=== PATIENT | female | born 1980 | race Caucasian/White ===

== ENCOUNTER 2017-10-03 20:02 | Inpatient (IN) | payer OTHER ==
[~2017-10-03] VITALS: Ht 149.9 cm; Wt 49.5 kg
[2017-10-03 20:03] VITALS: O2SAT 97
[2017-10-03] MEDS ORDERED: DIPHTH/TETANUS/ACEL PERTUSSIS (BOOSTER) 0.5 ML VIAL/PFS IM ONE (20:05)
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
[2017-10-03] MEDS ORDERED: IOHEXOL 350 MG/ML 100 ML BTL (for RAD DIAG) IVCONTRAST ONE (20:34)
[2017-10-03 20:41] LABS: AUTOMATED NEUTROPHIL # 7.1 TH/MM3 (1.8-7.7); BASOPHIL % 0.3 % (0.0-2.0); EOSINOPHIL % 0.4 % (0.0-4.0); HEMATOCRIT 36.3 % (35.0-46.0); HEMOGLOBIN 12.1 GM/DL (11.6-15.3); LYMPH % 30.6 % (9.0-44.0); LYMPHOCYTE # 3.3 TH/MM3 (1.0-4.8); MEAN CELL VOLUME 92.5 FL (80.0-100.0); MEAN CORPUSCULAR HEMOGLOBIN 30.8 PG (27.0-34.0); MEAN CORPUSCULAR HGB CONC 33.3 % (32.0-36.0); MEAN PLATELET VOLUME 7.9 FL (7.0-11.0); MONO % 3.9 % (0.0-8.0); MONOCYTE # 0.4 TH/MM3 (0-0.9); NEUT % 64.8 % (16.0-70.0); PLATELET COUNT 226 TH/MM3 (150-450); RED BLOOD COUNT 3.93 MIL/MM3 (4.00-5.30); RED CELL DISTRIBUTION WIDTH 13.7 % (11.6-17.2); WHITE BLOOD COUNT 10.9 TH/MM3 (4.0-11.0)
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
[2017-10-03 20:53] VITALS: O2SAT 98
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
[2017-10-03 20:54] VITALS: BP 120/79; PULSE 87; RESP 18; TEMP 98.7; O2SAT 98
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
[2017-10-03 20:55] LABS: INTERNATIONAL NORMALIZED RATIO 1.1 RATIO; PROTHROMBIN TIME - PATIENT 10.7 SEC (9.8-11.6)
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
[2017-10-03] MEDS ORDERED: SODIUM CHLORIDE 0.9% FLUSH 10 ML FLUSH IV FLUSH PRN (21:15)
[2017-10-03] MEDS ORDERED: ONDANSETRON HCL 4 MG/2 ML VIAL IV PUSH PRN (21:15)
[2017-10-03] MEDS ORDERED: MAGNESIUM HYDROXIDE SUSP 30 ML CUP PO PRN (21:15)
[2017-10-03] MEDS ORDERED: MISCELLANEOUS NURSING INFORMATION XX SCH (21:15)
[2017-10-03] MEDS ORDERED: CHLORHEXIDINE GLUCONATE 2 % 1 PACK (2 CLOTHS) TOP PRN (21:15)
[2017-10-03] MEDS: LACTATED RINGER'S 1000 ML INJ 1,000 ML IV SCH (21:40)
[2017-10-03 22:54] VITALS: BP 104/61; PULSE 77; RESP 18; O2SAT 98
[2017-10-03 23:57] VITALS: BP 117/67; PULSE 79; RESP 18; TEMP 98; O2SAT 98
[2017-10-04] VITALS (14 sets, daily range): BP systolic 106–123; BP diastolic 57–73; PULSE 58–92; RESP 13–29; TEMP 98.3–98.9; O2SAT 94–100
[2017-10-04] MEDS: LACTATED RINGER'S 1000 ML INJ 1,000 ML IV SCH ×3 (00:37→19:52)
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
[2017-10-04 02:25] LABS: HEMOGLOBIN 11.3 GM/DL (11.6-15.3)
[2017-10-04 02:26] LABS: AUTOMATED NEUTROPHIL # 9.6 TH/MM3 (1.8-7.7); BASOPHIL % 0.1 % (0.0-2.0); HEMOGLOBIN 11.3 GM/DL (11.6-15.3); LYMPH % 4.9 % (9.0-44.0); LYMPHOCYTE # 0.5 TH/MM3 (1.0-4.8); MEAN CELL VOLUME 91.7 FL (80.0-100.0); MEAN CORPUSCULAR HEMOGLOBIN 31.4 PG (27.0-34.0); MEAN CORPUSCULAR HGB CONC 34.3 % (32.0-36.0); MEAN PLATELET VOLUME 8.3 FL (7.0-11.0); MONOCYTE # 0.8 TH/MM3 (0-0.9); PLATELET COUNT 177 TH/MM3 (150-450); RED CELL DISTRIBUTION WIDTH 13.5 % (11.6-17.2)
[2017-10-04 02:38] LABS: BICARBONATE 28.6 MEQ/L (21.0-32.0); CALCIUM 8.3 MG/DL (8.5-10.1); CREATININE 0.94 MG/DL (0.50-1.00)
[2017-10-04] MEDS ORDERED: POTASSIUM CHLOR 40 MEQ PREMIX 100 ML IV PRN ×2 (02:45)
[2017-10-04] MEDS ORDERED: POTASSIUM PHOSPHATE MONOBASIC 500 MG TAB PO PRN (02:45)
[2017-10-04] MEDS ORDERED: MAGNESIUM SULFATE INJ 4 GM in SODIUM CHLORIDE 0.9% INJ 92 ML IV PRN (02:45)
[2017-10-04] MEDS ORDERED: POTASSIUM PHOSPHATE MONOBASIC 500 MG TAB PO/TUBE PRN (02:45)
[2017-10-04] MEDS ORDERED: MAGNESIUM OXIDE 400 MG TAB PO PRN (02:45)
[2017-10-04] MEDS ORDERED: POTASSIUM CHLORIDE 25 MEQ EFFERVESCENT TAB PO PRN (02:45)
[2017-10-04] MEDS ORDERED: POTASSIUM CHLOR 20 MEQ PREMIX 100 ML IV PRN ×2 (02:45)
[2017-10-04] MEDS ORDERED: POTASSIUM PHOSPHATE INJ 30 MMOL in SODIUM CHLOR 0.9% 250 ML INJ 250 ML IV PRN (02:45)
[2017-10-04] MEDS ORDERED: MAGNESIUM SULFATE INJ 2 GM in SODIUM CHLORIDE 0.9% INJ 96 ML IV PRN (02:45)
[2017-10-04] MEDS ORDERED: SODIUM PHOSPHATE INJ 30 MMOL in SODIUM CHLOR 0.9% 250 ML INJ 240 ML IV PRN (02:45)
[2017-10-04] MEDS ORDERED: MORPHINE SULFATE 2 MG/ML INJ IV PUSH PRN (03:00)
[2017-10-04] MEDS ORDERED: MORPHINE SULFATE 2 MG/ML INJ IV PRN (03:00)
[2017-10-04] MEDS: RESP: ALBUTEROL 2.5 MG/IPRATROPIUM 0.5 MG NEB (SCH) NEB ×4 (03:27→20:28)
[2017-10-04] MEDS: CHLORHEXIDINE GLUCONATE 2 % 1 PACK (2 CLOTHS) TOP SCH (03:31)
[2017-10-04 03:38] LABS: AMORPHOUS SEDIMENT, URINE RARE; BILIRUBIN, URINE NEG (NEG); BLOOD, URINE LARGE (NEG); GLUCOSE,URINE NEG (NEG); KETONE, URINE TRACE mg/dL (NEG); MUCUS URINE FEW /lpf (OCC); NITRITE,URINE NEG (NEG); PH, URINE 5.5 (5.0-8.5); SQUAMOUS EPITHELIAL CELL URINE 1 /hpf (0-5); URINE COLOR LIGHT-RED (YELLW/STRAW); URINE LEUKOCYTE ESTERASE TRACE (NEG)
[2017-10-04 04:19] LABS: HEMATOCRIT 32.1 % (35.0-46.0); HEMOGLOBIN 10.9 GM/DL (11.6-15.3); MEAN CELL VOLUME 91.9 FL (80.0-100.0); MEAN CORPUSCULAR HEMOGLOBIN 31.3 PG (27.0-34.0); MEAN PLATELET VOLUME 7.8 FL (7.0-11.0); PLATELET COUNT 166 TH/MM3 (150-450); RED BLOOD COUNT 3.49 MIL/MM3 (4.00-5.30); RED CELL DISTRIBUTION WIDTH 13.6 % (11.6-17.2); WHITE BLOOD COUNT 10.5 TH/MM3 (4.0-11.0)
[2017-10-04 04:49] LABS: ALBUMIN 3.5 GM/DL (3.4-5.0); AST (GOT) 627 U/L (15-37); BICARBONATE 28.6 MEQ/L (21.0-32.0); BLOOD UREA NITROGEN 13 MG/DL (7-18); CALCIUM 8.3 MG/DL (8.5-10.1); CHLORIDE 108 MEQ/L (98-107); CREATININE 0.87 MG/DL (0.50-1.00); GLOMERULAR FILTRATION RATE 56 ML/MIN (>89); GLUCOSE,RANDOM 119 MG/DL (74-106); MAGNESIUM 1.9 MG/DL (1.5-2.5); SODIUM (NA) 142 MEQ/L (136-145)
[2017-10-04 04:53] LABS: ALKALINE PHOSPHATASE 61 U/L (45-117); ALT (GPT) 414 U/L (10-53); TOTAL BILIRUBIN ADULT 0.7 MG/DL (0.2-1.0); TOTAL PROTEIN 6.7 GM/DL (6.4-8.2)
--- NOTE | 2017-10-04 06:20 | RADRPT ---
EXAM DATE/TIME: 10/04/2017 05:34 [facility] COMPARISON: CT THORAX W CONTRAST, October 03, 2017, 20:25. CHEST SINGLE AP, October 03, 2017, 20:02. INDICATIONS : Shortness of breath. MEDICAL HISTORY : None. SURGICAL HISTORY : None. ENCOUNTER: Initial ACUITY: 1 day PAIN SCORE: Non-responsive. LOCATION: Bilateral chest FINDINGS: A single portable frontal view of the chest shows an acute right clavicular fracture. Old left clavic ular fracture. Acute right scapular fracture. Subcutaneous air overlying the right chest. No pneumoth orax observed. Some consolidation involving the peripheral right upper lobe. No effusions or pneumoth oraces. Heart is normal in size. CONCLUSION: 1. Right clavicular and right scapular fracture. 2. Consolidation involving the peripheral right upper lobe likely related to pulmonary contusion. No pneumothorax. 3. The today's air overlying the right chest. Angelito Simmons Jr., MD on October 04, 2017 at 6:16 Board Certified Radiologist. This report was verified electronically.
[2017-10-04] MEDS ORDERED: LACTULOSE SYRUP 20 GM/30 ML CUP PO PRN (08:00)
[2017-10-04] MEDS: FAMOTIDINE 20 MG/2 ML VIAL IV PUSH SCH ×2 (08:23→19:51)
[2017-10-04] MEDS: DOCUSATE SODIUM 50 MG/SENNA 8.6 MG TAB PO SCH ×2 (08:23→19:51)
[2017-10-04] MEDS ORDERED: ceFAZolin 2 GM PREMIX 0 ML ONE (08:51)
[2017-10-04] MEDS ORDERED: BUPIVACAINE/EPINEPHRINE 0.25% PF 30 ML VIAL ONE (08:51)
[2017-10-04] MEDS ORDERED: VANCOMYCIN HCL 1000 MG VIAL ONE (08:51)
[2017-10-04] MEDS ORDERED: SODIUM CHLOR 0.9% 250 ML INJ 250 ML ONE (08:52)
[2017-10-04] MEDS ORDERED: DOCUSATE SODIUM 100 MG CAP PO SCH (09:00)
[2017-10-04] MEDS ORDERED: GENTAMICIN SULFATE 80 MG/2 ML VIAL ONE (09:06)
[2017-10-04] MEDS ORDERED: XARE10TA PO (09:57)
[2017-10-04] MEDS ORDERED: HYDR-3583 PO (09:57)
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
--- NOTE | 2017-10-04 10:24 | PD.OP ---
cc: James Horner MD Operative Report Date of Surgery: Oct 04, 2017 Preoperative Diagnosis: Displaced right femur fracture Postoperative Diagnosis: Procedure: Reduction and intramedullary nail fixation right femur Anesthesia: Gen. Surgeon: James Horner Gluing Machine Adjuster(s): LELAND Rodriguez PA-C The surgical procedure was assisted by my physician assistant designer. My P.A. presence was necessary throughout this case for the manipulation and positioning of the surgical extremity. My P.A. was assisting me throughout the duration of this procedure. The skill set of a physician assistant designer was medically necessary to complete this procedure. During the surgical case the surgical training specialist was working at the back table and the physician assistant designer was directly assisting me. Operation and Findings: Plan of activity: Weight-bear as tolerated Samantha was seen and evaluated preoperatively. She has significant leg pain from right femur shaft fracture and right clavicle fracture. The risk and benefits of surgery were discussed in depth with the patient to include bleeding , infection, nonunion, malunion, need for hip replacement, painful hardware, as well as medical competitions including blood clots, stroke, heart attack, and . Informed consent was obtained. Operative site was marked. Patient was brought to the operating room and placed on Tani table. IV sedation was administered by anesthesiologist. Timeout procedure was performed. Hip and leg were prepped with alcohol followed by Hibiclens and draped in the usual sterile fashion. IV antibiotics were given prior to incision. Procedure began with reduction of fracture. Traction was applied. The leg was manipulated to achieve reduction. Excellent reduction was achieved. Fluoroscopy was used to confirm reduction. A two inch incision was made over the anterior knee. A medial arthrotomy was created. Guidepin was placed into the distal femur and advanced into the femoral canal. Fluoroscopy confirmed appropriate guidepin placement. A opening reamer was placed over the guidepin. A long ball tipped guide pin was now placed down the femoral canal into the center of the proximal femur. The nail length was now measured. Fluoroscopy confirmed appropriate guidepin placement. Flexible reamers were now passed over the guidepin to ream the intramedullary canal. The Synthes nail was attached to the insertion handle. Nail was now placed over the guidepin into the femoral canal. Fluoroscopy confirmed appropriate nail placement. A small percutaneous incisions were made over the lateral thigh. Cannulas were placed through the insertion handle down to the femur. Using the insertion handle as a guide the distal interlocking screw holes were predrilled and screw lengths were measured. Appropriate length screws was now placed. The fracture was now compressed. Next, using perfect [place]vik technique a proximal interlocking screw was placed. Screw holes were predrilled and screw lengths were measured. Final fluoroscopy revealed well aligned fracture with well-placed hardware. Incision was closed with 0 Vicryl, 3-0 Vicryl and taniya. Sterile dressings were applied. Patient was awakened and transferred to recovery room. James Horner MD Oct 04, 2017 10:24
[2017-10-04] MEDS ORDERED: DO NOT ADM ANY ANTICOAGULANT DRUGS PRN (10:43)
[2017-10-04] MEDS ORDERED: MIDAZOLAM HCL 2 MG/2 ML VIAL ONE (10:48)
[2017-10-04] MEDS ORDERED: ceFAZolin INJ 1,000 MG VIAL ONE (10:54)
--- NOTE | 2017-10-04 11:20 | RADRPT ---
EXAM DATE/TIME: 10/04/2017 10:14 [facility] COMPARISON: No previous studies available for comparison. INDICATIONS : Right femur fracture- ORIF. Retrograde IM nail. Done in OR. MEDICAL HISTORY : None. SURGICAL HISTORY : None. ENCOUNTER: Initial ACUITY: 1 day PAIN SCORE: Non-responsive. LOCATION: Right Femur. FINDINGS: Intramedullary reji bridging the right femur. Alignment anatomic.. CONCLUSION: Anatomic alignment. Vamshi Cherry MD FACR on October 04, 2017 at 11:18 Board Certified Radiologist. This report was verified electronically.
[2017-10-04] MEDS ORDERED: LIDOCAINE HCL 1% PF 5 ML SYRINGE OTHER ONE (12:00)
[2017-10-04] MEDS ORDERED: NEOSTIGMINE 5 MG/5 ML SYRINGE IV PUSH ONE (12:00)
[2017-10-04] MEDS ORDERED: PHENYLEPH/NS 1000 MCG/10 ML SYR IV ONE (12:00)
[2017-10-04] MEDS ORDERED: DEXAMETHASONE SOD PHOS 4 MG/ML VIAL IV ONE (12:00)
[2017-10-04] MEDS ORDERED: PROPOFOL 200 MG/20 ML AMP IV ONE (12:00)
[2017-10-04] MEDS ORDERED: ROCURONIUM INJ 50 MG/5 ML SYRINGE IV PUSH ONE (12:00)
[2017-10-04] MEDS ORDERED: EPINEPHrine HCL (1:1000) 1 MG/ML VIAL IV ONE (12:00)
[2017-10-04] MEDS ORDERED: ONDANSETRON HCL 4 MG/2 ML VIAL IV PUSH ONE (12:00)
[2017-10-04] MEDS ORDERED: GLYCOPYRROLATE 1 MG/5 ML SYRINGE IV PUSH ONE (12:00)
[2017-10-04 12:13] LABS: HEMATOCRIT 31.2 % (35.0-46.0); HEMOGLOBIN 10.5 GM/DL (11.6-15.3)
--- NOTE | 2017-10-04 12:23 | RADRPT ---
EXAM DATE/TIME: 10/04/2017 11:52 [facility] COMPARISON: CT THORAX W CONTRAST, October 03, 2017, 20:25. INDICATIONS : Evaluate for pneumothorax. MEDICAL HISTORY : None. SURGICAL HISTORY : None. ENCOUNTER: Subsequent ACUITY: 1 day PAIN SCORE: Non-responsive. LOCATION: Bilateral chest FINDINGS: A single view of the chest demonstrates slight increase in right lung consolidation since October 04 e xam from earlier today. Subcutaneous air in the right chest wall. Acute right clavicle fracture. Old left clavicle fracture. There is a small right pneumothorax. CONCLUSION: 1. Small right pneumothorax. 2. Slight increase in right lung consolidation since earlier today. Right clavicle fracture and multiple right rib fractures. Teto Butts MD on October 04, 2017 at 12:19 Board Certified Radiologist. This report was verified electronically.
--- NOTE | 2017-10-04 13:51 | HHI.CCPN ---
Subjective 24 Hour Review/Hospital Course 10/04/17 Patient returns from orthopedic surgery with a small apical pneumothorax, not much different than her admission film Will repeat chest x-ray tomorrow, she may require a chest tube, sooner if she develops respiratory distress Objective Vital Signs Date Time Temp Pulse Resp B/P (MAP) Pulse Ox O2 Delivery O2 Flow Rate FiO2 10/04/17 12:00 70 10/04/17 12:00 98.5 13 123/73 (90) 100 10/04/17 11:14 Nasal Cannula 2 10/04/17 08:16 21 Intake and Output 10/04/17 10/04/17 10/05/17 08:00 16:00 00:00 Intake Total 656 ml 1850 ml Output Total 175 ml 120 ml Balance 481 ml 1730 ml Result Diagram: 10/04/17 1145 10/04/17 0352 Imaging Last 24 hours Impressions Chest X-Ray 10/04/17 1200 Signed Impressions: Service Date/Time: Wednesday, October 04, 2017 11:52 - CONCLUSION: 1. Small right pneumothorax. 2. Slight increase in right lung consolidation since earlier today. Right clavicle fracture and multiple right rib fractures. Teto Butts MD Femur X-Ray 10/04/17 0000 Signed Impressions: Service Date/Time: Wednesday, October 04, 2017 10:14 - CONCLUSION: Anatomic alignment. Vamshi Cherry MD FACR Chest X-Ray 10/04/17 0000 Signed Impressions: Service Date/Time: Wednesday, October 04, 2017 05:34 - CONCLUSION: 1. Right clavicular and right scapular fracture. 2. Consolidation involving the peripheral right upper lobe likely related to pulmonary contusion. No pneumothorax. 3. The today's air overlying the right chest. Angelito Simmons Jr., MD Pelvis X-Ray 10/03/172003 Signed Impressions: Service Date/Time: Tuesday, October 03, 2017 20:02 - CONCLUSION: No acute fracture. Jhonny Ivey MD Maxillofacial CT 10/03/172003 Signed Impressions: Service Date/Time: Tuesday, October 03, 2017 20:17 - CONCLUSION: 1. No acute fractures. 2. Left nasal fracture but appears old. Jhonny Ivey MD Head CT 10/03/172003 Signed Impressions: Service Date/Time: Tuesday, October 03, 2017 20:17 - CONCLUSION: 1. No acute intracranial abnormality. 2. Porencephaly. Jhonny Ivey MD Chest X-Ray 10/03/172003 Signed Impressions: Service Date/Time: Tuesday, October 03, 2017 20:02 - CONCLUSION: Right clavicle fracture. Subcutaneous emphysema on the right. Jhonny Ivey MD Chest CT 10/03/172003 Signed Impressions: Service Date/Time: Tuesday, October 03, 2017 20:25 - CONCLUSION: 1. Tiny right-sided pneumothorax. 2. Right upper lobe lung contusions. 3. Small right-sided hemothorax and multiple right-sided rib fractures. 4. Subcutaneous emphysema on the right. Jhonny Ivey MD Cervical Spine CT 10/03/172003 Signed Impressions: Service Date/Time: Tuesday, October 03, 2017 20:17 - CONCLUSION: 1. No fracture or subluxation. 2. Subcutaneous emphysema right neck. 3. Groundglass densities in the lung apices. Jhonny Ivey MD Abdomen/Pelvis CT 10/03/172003 Signed Impressions: Service Date/Time: Tuesday, October 03, 2017 20:25 - CONCLUSION: 1. Liver laceration centrally. No hemoperitoneum. 2. Multiple transverse process fractures on the right from L2-L5. 3. Nondisplaced fracture left inferior pubic ramus. 4. Multiple right-sided rib fractures with small right hemothorax and pneumothorax. Jhonny Ivey MD Exam TURNTABLE WORKER Alert, baseline level of confusion Pulmonary/Respiratory Clear to auscultation bilaterally Abdomen/GI Nutrition Soft, nontender, nondistended Hematologic Stable hemoglobin 10.5 Assessment and Plan Plan Acute blood loss anemia with a grade 3 liver laceration, continue ICU monitoring and serial hemoglobins Aggressive pulmonary toilet and repeat chest x-ray tomorrow for small pneumothorax, she will likely require chest tube placement Physical therapy and occupational therapy for her femur fracture clavicle fracture and pubic rami fracture Manas Dan MD Oct 04, 2017 13:51
[2017-10-04 18:44] LABS: HEMATOCRIT 29.5 % (35.0-46.0); HEMOGLOBIN 9.9 GM/DL (11.6-15.3)
[2017-10-04] MEDS: ACETAMINOPHEN 1000 MG/100 ML 100 ML IV SCH (19:50)
[2017-10-04] MEDS: LIDOCAINE HCL 5% PATCH T-DERMAL SCH (19:51)
[2017-10-04] MEDS: ONDANSETRON HCL 4 MG/2 ML VIAL IVP PRN (19:55)
[2017-10-04] MEDS: MORPHINE SULFATE 2 MG/ML INJ IV PUSH PRN (19:56)
[2017-10-04] MEDS: METHOCARBAMOL 500 MG TAB PO SCH (22:00)
[2017-10-05] VITALS (12 sets, daily range): BP systolic 96–121; BP diastolic 55–80; PULSE 74–100; RESP 12–22; TEMP 97.6–98.7; O2SAT 92–97
[2017-10-05 00:15] LABS: HEMATOCRIT 26.6 % (35.0-46.0); HEMOGLOBIN 9.2 GM/DL (11.6-15.3)
[2017-10-05] MEDS: CHLORHEXIDINE GLUCONATE 2 % 1 PACK (2 CLOTHS) TOP SCH (02:36)
[2017-10-05] MEDS: ACETAMINOPHEN 1000 MG/100 ML 100 ML IV SCH ×3 (02:36→14:04)
[2017-10-05] MEDS: RESP: ALBUTEROL 2.5 MG/IPRATROPIUM 0.5 MG NEB (SCH) NEB ×4 (03:31→19:44)
[2017-10-05] MEDS: MORPHINE SULFATE 2 MG/ML INJ IV PUSH PRN ×3 (04:17→20:51)
[2017-10-05 05:24] LABS: AUTOMATED NEUTROPHIL # 4.2 TH/MM3 (1.8-7.7); BASOPHIL % 0.4 % (0.0-2.0); EOSINOPHIL % 0.3 % (0.0-4.0); HEMATOCRIT 25.7 % (35.0-46.0); HEMOGLOBIN 8.9 GM/DL (11.6-15.3); LYMPHOCYTE # 1.5 TH/MM3 (1.0-4.8); MEAN CELL VOLUME 91.4 FL (80.0-100.0); MEAN CORPUSCULAR HEMOGLOBIN 31.6 PG (27.0-34.0); MEAN CORPUSCULAR HGB CONC 34.6 % (32.0-36.0); MEAN PLATELET VOLUME 8.1 FL (7.0-11.0); MONO % 8.4 % (0.0-8.0); MONOCYTE # 0.5 TH/MM3 (0-0.9); NEUT % 66.9 % (16.0-70.0); PLATELET COUNT 126 TH/MM3 (150-450); RED BLOOD COUNT 2.81 MIL/MM3 (4.00-5.30); RED CELL DISTRIBUTION WIDTH 13.3 % (11.6-17.2); WHITE BLOOD COUNT 6.2 TH/MM3 (4.0-11.0)
[2017-10-05] MEDS: LACTATED RINGER'S 1000 ML INJ 1,000 ML IV SCH (05:47)
[2017-10-05 05:58] LABS: ALBUMIN 2.7 GM/DL (3.4-5.0); ALKALINE PHOSPHATASE 44 U/L (45-117); ALT (GPT) 201 U/L (10-53); AST (GOT) 175 U/L (15-37); BICARBONATE 27.3 MEQ/L (21.0-32.0); BLOOD UREA NITROGEN 5 MG/DL (7-18); CALCIUM 7.7 MG/DL (8.5-10.1); CHLORIDE 108 MEQ/L (98-107); CREATININE 0.66 MG/DL (0.50-1.00); GLOMERULAR FILTRATION RATE 103 ML/MIN (>89); GLUCOSE,RANDOM 113 MG/DL (74-106); SODIUM (NA) 142 MEQ/L (136-145); TOTAL BILIRUBIN ADULT 0.4 MG/DL (0.2-1.0); TOTAL PROTEIN 5.6 GM/DL (6.4-8.2)
[2017-10-05] MEDS: METHOCARBAMOL 500 MG TAB PO SCH ×3 (06:01→20:49)
--- NOTE | 2017-10-05 06:42 | PD.ORT.PN ---
Subjective Subjective Remarks POD 1 s/p IMN right femur s/p right clavicle fx reports right shoulder pain. with movement. states leg pain controlled Objective Vitals Vital Signs Date Time Temp Pulse Resp B/P (MAP) Pulse Ox O2 Delivery O2 Flow Rate FiO2 10/05/17 06:00 88 10/05/17 04:00 84 10/05/17 04:00 98.7 84 14 112/59 (76) 96 10/05/17 02:00 80 10/05/17 00:00 98.7 77 14 96/55 (69) 97 10/05/17 00:00 77 10/04/17 22:00 92 10/04/17 20:29 100 10/04/17 20:00 98.3 84 29 111/57 (75) 98 10/04/17 20:00 84 10/04/17 19:00 93 Room Air 10/04/17 18:00 91 10/04/17 16:00 98.7 91 23 106/61 (76) 100 10/04/17 16:00 85 10/04/17 14:00 72 10/04/17 12:00 70 10/04/17 12:00 98.5 65 13 123/73 (90) 100 10/04/17 11:14 98.0 87 20 111/75 (87) 99 Nasal Cannula 2 10/04/17 11:00 87 20 111/75 (87) 99 Nasal Cannula 2 10/04/17 10:44 98.0 72 20 121/72 (88) 100 Nasal Cannula 2 10/04/17 09:22 98.5 82 20 109/61 (77) 100 10/04/17 09:02 98.5 68 20 109/61 (77) 100 10/04/17 08:16 94 21 10/04/17 08:00 98.7 68 16 114/62 (79) 100 10/04/17 08:00 68 10/04/17 07:00 91 Nasal Cannula 4.00 I/O 10/04/17 10/04/17 10/04/17 10/05/17 10/05/17 10/05/17 07:00 15:00 23:00 07:00 15:00 23:00 Intake Total 656 ml 1850 ml 340 ml 120 ml Output Total 175 ml 120 ml 550 ml 1250 ml Balance 481 ml 1730 ml -210 ml -1130 ml Intake Oral 0 ml 240 ml 120 ml IV Total 656 ml 1000 ml 100 ml Other 850 ml Output Urine Total 175 ml 550 ml 1250 ml Other 120 ml # Bowel Movements 0 0 0 Result Diagram: 10/05/17 0455 10/05/17 0455 Imaging Last 24 hours Impressions Chest X-Ray 10/04/17 1200 Signed Impressions: Service Date/Time: Wednesday, October 04, 2017 11:52 - CONCLUSION: 1. Small right pneumothorax. 2. Slight increase in right lung consolidation since earlier today. Right clavicle fracture and multiple right rib fractures. Teto Butts MD Objective Remarks RLE: dressings clean and dry. intact. NVI RUE: pain with motion. nvi distally Assessment & Plan Assessment and Plan 1) Right Femoral Shaft Fx s/p IMN - POD 1 -WBAT -daily dressing changes -CM for DC planning 2) Right Clavicle Fx - nonop -NWB -sling -no ROM -f/u with [facility] or [facility] in 2 weeks -Rx on chart -DVt prophylaxis with lovenox and DC with Haroldo Mcrae/Chronic Specialist [facility] Oct 05, 2017 06:42
--- NOTE | 2017-10-05 06:48 | RADRPT ---
EXAM DATE/TIME: 10/05/2017 05:05 [facility] COMPARISON: CHEST SINGLE AP, October 04, 2017, 11:52. INDICATIONS : Short of breath. MEDICAL HISTORY : None. SURGICAL HISTORY : None. ENCOUNTER: Subsequent ACUITY: 2 days PAIN SCORE: 0/10 LOCATION: Bilateral chest FINDINGS: A single portable frontal view the chest shows no significant change. Right clavicular and right-side d rib fractures again noted. Consolidation throughout the right lung is unchanged. A tiny subpulmonic pneumothorax is stable. Left lung is clear. Heart is normal in size. Subcutaneous air overlies the r ight chest. CONCLUSION: Unchanged exam. Angelito Simmons Jr., MD on October 05, 2017 at 6:08 Board Certified Radiologist. This report was verified electronically.
[2017-10-05] MEDS: FAMOTIDINE 20 MG/2 ML VIAL IV PUSH SCH (08:23)
[2017-10-05] MEDS: DOCUSATE SODIUM 50 MG/SENNA 8.6 MG TAB PO SCH ×2 (08:25→20:48)
[2017-10-05] MEDS: CHOLECALCIFEROL (VIT D3) 5000 UNIT CAP PO SCH (08:25)
[2017-10-05] MEDS: LIDOCAINE HCL 5% PATCH T-DERMAL SCH (08:25)
[2017-10-05] MEDS ORDERED: ENOXAPARIN SODIUM 30 MG/0.3 ML SYRINGE SQ SCH (10:00)
[2017-10-05] MEDS: ENOXAPARIN SODIUM 30 MG/0.3 ML SYRINGE SQ SCH ×2 (10:40→20:48)
[2017-10-05] MEDS: QUEtiapine FUMARATE 25 MG TAB PO SCH ×2 (10:40→18:04)
--- NOTE | 2017-10-05 13:07 | HHI.CCPN ---
Subjective 24 Hour Review/Hospital Course 10/04/17 Patient returns from orthopedic surgery with a small apical pneumothorax, not much different than her admission film Will repeat chest x-ray tomorrow, she may require a chest tube, sooner if she develops respiratory distress 10/05/17 Pneumothorax resolved on chest x-ray today Postop day 1 from IM nail of right femur fracture, nonoperative management of her clavicle fracture and pubic rami fracture She remains hemodynamic stable from her liver laceration Objective Vital Signs Date Time Temp Pulse Resp B/P (MAP) Pulse Ox O2 Delivery O2 Flow Rate FiO2 10/05/17 12:03 74 10/05/17 12:03 97.8 12 100/56 (71) 94 10/04/17 19:00 Room Air 10/04/17 11:14 2 10/04/17 08:16 21 Intake and Output 10/05/17 10/05/17 10/06/17 08:00 16:00 00:00 Intake Total 1120 ml Output Total 1250 ml Balance -130 ml Result Diagram: 10/05/17 0455 10/05/17 0455 Imaging Last 24 hours Impressions Chest X-Ray 10/05/17 0600 Signed Impressions: Service Date/Time: October 05:05 - CONCLUSION: Unchanged exam. Angelito Simmons Jr., MD Exam MANAGER PRACTICE Alert, oriented, childlike mentation Hemodynamic/Cardiac Regular rate and rhythm, stable Pulmonary/Respiratory Clear to auscultation bilaterally, tender chest wall on the right Abdomen/GI Nutrition Soft, nontender, nondistended, tolerating diet Renal/I&O Adequate urine output Hematologic Stable Assessment and Plan Plan Acute blood loss anemia with a grade 3 liver laceration remains stable, transferred to the floor today Continue aggressive pulmonary toilet, chest x-ray shows no pneumothorax with a slightly worsened pulmonary contusion Physical therapy and occupational therapy to continue to work with Discharge planning, physical therapy recommending rehabilitation placement Manas Dan MD Oct 05, 2017 13:07
[2017-10-05 17:04] LABS: HEMATOCRIT 24.8 % (35.0-46.0); HEMOGLOBIN 8.6 GM/DL (11.6-15.3)
[2017-10-06] VITALS (11 sets, daily range): BP systolic 100–115; BP diastolic 51–72; PULSE 80–120; RESP 18–26; TEMP 97.5–98.9; O2SAT 91–99
[2017-10-06] MEDS: QUEtiapine FUMARATE 25 MG TAB PO SCH ×4 (02:00→18:16)
[2017-10-06] MEDS: CHLORHEXIDINE GLUCONATE 2 % 1 PACK (2 CLOTHS) TOP SCH (02:58)
[2017-10-06] MEDS: RESP: ALBUTEROL 2.5 MG/IPRATROPIUM 0.5 MG NEB (SCH) NEB ×4 (04:11→21:20)
[2017-10-06 04:31] LABS: AUTOMATED NEUTROPHIL # 4.5 TH/MM3 (1.8-7.7); BASOPHIL % 0.6 % (0.0-2.0); EOSINOPHIL # 0.1 TH/MM3 (0-0.4); EOSINOPHIL % 1.4 % (0.0-4.0); HEMATOCRIT 26.6 % (35.0-46.0); HEMOGLOBIN 9.3 GM/DL (11.6-15.3); LYMPH % 18.7 % (9.0-44.0); LYMPHOCYTE # 1.2 TH/MM3 (1.0-4.8); MEAN CELL VOLUME 91.6 FL (80.0-100.0); MEAN CORPUSCULAR HEMOGLOBIN 31.8 PG (27.0-34.0); MEAN CORPUSCULAR HGB CONC 34.8 % (32.0-36.0); MEAN PLATELET VOLUME 8.3 FL (7.0-11.0); MONO % 7.7 % (0.0-8.0); MONOCYTE # 0.5 TH/MM3 (0-0.9); NEUT % 71.6 % (16.0-70.0); PLATELET COUNT 144 TH/MM3 (150-450); RED BLOOD COUNT 2.91 MIL/MM3 (4.00-5.30); RED CELL DISTRIBUTION WIDTH 13.4 % (11.6-17.2); WHITE BLOOD COUNT 6.2 TH/MM3 (4.0-11.0)
[2017-10-06 04:45] LABS: ALBUMIN 2.8 GM/DL (3.4-5.0); AST (GOT) 106 U/L (15-37); BLOOD UREA NITROGEN 5 MG/DL (7-18); CALCIUM 8.1 MG/DL (8.5-10.1); CHLORIDE 106 MEQ/L (98-107); CREATININE 0.54 MG/DL (0.50-1.00); GLOMERULAR FILTRATION RATE 129 ML/MIN (>89); GLUCOSE,RANDOM 97 MG/DL (74-106); SODIUM (NA) 140 MEQ/L (136-145)
[2017-10-06 04:48] LABS: ALKALINE PHOSPHATASE 48 U/L (45-117); ALT (GPT) 137 U/L (10-53); TOTAL BILIRUBIN ADULT 0.6 MG/DL (0.2-1.0); TOTAL PROTEIN 6.1 GM/DL (6.4-8.2)
[2017-10-06] MEDS: METHOCARBAMOL 500 MG TAB PO SCH ×3 (05:21→20:50)
[2017-10-06] MEDS: ONDANSETRON HCL 4 MG/2 ML VIAL IVP PRN (05:33)
[2017-10-06] MEDS: MORPHINE SULFATE 2 MG/ML INJ IV PUSH PRN (05:34)
--- NOTE | 2017-10-06 07:19 | PD.ORT.PN ---
Subjective Subjective Remarks POD 2 s/p IMN right femur s/p right clavicle fx reports right shoulder pain. with movement. states leg pain controlled Objective Vitals Vital Signs Date Time Temp Pulse Resp B/P (MAP) Pulse Ox O2 Delivery O2 Flow Rate FiO2 10/06/17 06:00 81 10/06/17 04:00 98.9 107 26 115/72 (86) 91 10/06/17 04:00 107 10/06/17 02:00 95 10/06/17 00:00 104 10/06/17 00:00 98.6 104 26 110/68 (82) 93 10/05/17 22:00 100 10/05/17 20:00 98.2 96 20 102/80 (87) 96 10/05/17 20:00 96 10/05/17 18:00 99 10/05/17 16:05 97.6 92 22 121/59 (79) 92 10/05/17 16:05 92 10/05/17 14:00 78 10/05/17 12:03 74 10/05/17 12:03 97.8 74 12 100/56 (71) 94 10/05/17 10:00 80 10/05/17 08:00 98.5 82 15 105/65 (78) 93 10/05/17 08:00 82 I/O 10/05/17 10/05/17 10/05/17 10/06/17 10/06/17 10/06/17 07:00 15:00 23:00 07:00 15:00 23:00 Intake Total 1120 ml 700 ml 700 ml 240 ml Output Total 1250 ml 1325 ml 1125 ml Balance -130 ml 700 ml -625 ml -885 ml Intake Oral 120 ml 600 ml 240 ml IV Total 1000 ml 700 ml 100 ml Output Urine Total 1250 ml 1325 ml 1125 ml # Bowel Movements 0 0 0 Result Diagram: 10/06/17 0401 10/06/17 0401 Imaging Last 24 hours Impressions Chest X-Ray 10/04/17 1200 Signed Impressions: Service Date/Time: Wednesday, October 04, 2017 11:52 - CONCLUSION: 1. Small right pneumothorax. 2. Slight increase in right lung consolidation since earlier today. Right clavicle fracture and multiple right rib fractures. Teto Butts MD Objective Remarks RLE: dressings clean and dry. intact. NVI RUE: pain with motion. nvi distally Assessment & Plan Assessment and Plan 1) Right Femoral Shaft Fx s/p IMN - POD 2 -WBAT -daily dressing changes -CM for DC planning 2) Right Clavicle Fx - nonop -NWB -sling -no ROM -f/u with [facility] or [facility] in 2 weeks -Rx on chart -DVt prophylaxis with lovenox and DC with Haroldo Mcrae/First Andrew SAUCEDA Oct 06, 2017 07:19
--- NOTE | 2017-10-06 07:50 | RADRPT ---
EXAM DATE/TIME: 10/06/2017 07:31 [facility] COMPARISON: CHEST SINGLE AP, October 05, 2017, 5:05. INDICATIONS : Evaluate for pneumothorax. MEDICAL HISTORY : None. SURGICAL HISTORY : None. ENCOUNTER: Subsequent ACUITY: 2 days PAIN SCORE: Non-responsive. LOCATION: Bilateral chest FINDINGS: Right rib fractures with patchy consolidation and small pleural effusion again noted, not significant ly changed. No perceptible pneumothorax although there is some persistent right chest wall emphysema. Left lung remains clear. Normal, stable heart size. There are subacute right and old left clavicle fractures. CONCLUSION: No significant change. Rib fractures with patchy consolidation and small effusion again noted on the right. There is chest wall emphysema but no perceptible pneumothorax. Ivan Mckeon MD on October 06, 2017 at 7:48 Board Certified Radiologist. This report was verified electronically.
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
[2017-10-06] MEDS: LIDOCAINE HCL 5% PATCH T-DERMAL SCH (08:53)
[2017-10-06] MEDS: DOCUSATE SODIUM 50 MG/SENNA 8.6 MG TAB PO SCH ×2 (08:54→20:50)
[2017-10-06] MEDS: CHOLECALCIFEROL (VIT D3) 5000 UNIT CAP PO SCH (08:56)
[2017-10-06] MEDS: ENOXAPARIN SODIUM 30 MG/0.3 ML SYRINGE SQ SCH ×2 (09:07→20:49)
[2017-10-06] MEDS: MAGNESIUM HYDROXIDE SUSP 30 ML CUP PO SCH ×2 (20:59→21:00)
[2017-10-07 00:15] VITALS: BP 106/58; PULSE 109; RESP 18; TEMP 100.3; O2SAT 93
[2017-10-07] MEDS: QUEtiapine FUMARATE 25 MG TAB PO SCH ×2 (02:35→08:10)
[2017-10-07] MEDS: RESP: ALBUTEROL 2.5 MG/IPRATROPIUM 0.5 MG NEB (SCH) NEB ×2 (03:31→09:17)
[2017-10-07 04:20] VITALS: BP 105/57; PULSE 109; RESP 19; TEMP 99.7; O2SAT 92
[2017-10-07] MEDS: METHOCARBAMOL 500 MG TAB PO SCH ×2 (05:22→12:45)
--- NOTE | 2017-10-07 05:39 | RADRPT ---
EXAM DATE/TIME: 10/07/2017 04:42 [facility] COMPARISON: CHEST SINGLE AP, October 06, 2017, 7:31. INDICATIONS : Evaluate for pneumothorax. MEDICAL HISTORY : None. SURGICAL HISTORY : None. ENCOUNTER: Subsequent ACUITY: 4 - 6 days PAIN SCORE: Non-responsive. LOCATION: Bilateral chest FINDINGS: Single AP view of the chest. Multiple right-sided rib fractures again seen. Subcutaneous emphysema ag ain seen on the right. Hazy right lower lung opacity unchanged. Small right pleural effusion is now s een. No evidence of pneumothorax. CONCLUSION: Multiple right-sided rib fractures and subcutaneous emphysema along with small right pleural effusion . No evidence of pneumothorax. Driss Joshi MD on October 07, 2017 at 5:37 Board Certified Radiologist. This report was verified electronically.
--- NOTE | 2017-10-07 06:43 | PD.ORT.PN ---
Subjective Subjective Remarks POD 3 s/p IMN right femur s/p right clavicle fx reports right shoulder pain. with movement. states leg pain controlled Objective Vitals Vital Signs Date Time Temp Pulse Resp B/P (MAP) Pulse Ox O2 Delivery O2 Flow Rate FiO2 10/07/17 04:20 99.7 109 19 105/57 (73) 92 10/07/17 03:12 18 10/07/17 00:15 100.3 109 18 106/58 (74) 93 10/07/17 00:05 Room Air 10/06/17 20:00 97.5 120 19 106/51 (69) 92 10/06/17 16:00 98.3 115 18 111/65 (80) 95 10/06/17 16:00 95 21 10/06/17 14:00 80 10/06/17 12:00 85 10/06/17 12:00 98.4 85 20 110/60 (77) 99 10/06/17 10:00 85 10/06/17 08:06 96 Nasal Cannula 4.00 10/06/17 08:00 80 10/06/17 08:00 98.4 104 26 100/71 (81) 99 I/O 10/06/17 10/06/17 10/06/17 10/07/17 10/07/17 10/07/17 07:00 15:00 23:00 07:00 15:00 23:00 Intake Total 240 ml 240 ml 240 ml Output Total 1125 ml 250 ml Balance -885 ml -10 ml 240 ml Intake Oral 240 ml 240 ml 240 ml Output Urine Total 1125 ml 250 ml # Voids 1 # Bowel Movements 0 0 Result Diagram: 10/06/17 0401 10/06/17 0401 Imaging Last 24 hours Impressions Chest X-Ray 10/04/17 1200 Signed Impressions: Service Date/Time: Wednesday, October 04, 2017 11:52 - CONCLUSION: 1. Small right pneumothorax. 2. Slight increase in right lung consolidation since earlier today. Right clavicle fracture and multiple right rib fractures. Teto Butts MD Objective Remarks RLE: dressings clean and dry. intact. NVI RUE: pain with motion. nvi distally Assessment & Plan Assessment and Plan 1) Right Femoral Shaft Fx s/p IMN - POD 3 -WBAT -daily dressing changes -CM for DC planning 2) Right Clavicle Fx - nonop -NWB -sling -no ROM -f/u with [facility] or [facility] in 2 weeks -Rx on chart -DVt prophylaxis with lovenox and DC with Kaseyrelto Haroldo Lee/First Andrew SAUCEDA Oct 07, 2017 06:43
--- NOTE | 2017-10-07 07:00 | PD.ORT.PN ---
Subjective Subjective Remarks Resting comfortably with no new complaints Objective Vitals Vital Signs Date Time Temp Pulse Resp B/P (MAP) Pulse Ox O2 Delivery O2 Flow Rate FiO2 10/07/17 04:20 99.7 109 19 105/57 (73) 92 10/07/17 03:12 18 10/07/17 00:15 100.3 109 18 106/58 (74) 93 10/07/17 00:05 Room Air 10/06/17 20:00 97.5 120 19 106/51 (69) 92 10/06/17 16:00 98.3 115 18 111/65 (80) 95 10/06/17 16:00 95 21 10/06/17 14:00 80 10/06/17 12:00 85 10/06/17 12:00 98.4 85 20 110/60 (77) 99 10/06/17 10:00 85 10/06/17 08:06 96 Nasal Cannula 4.00 10/06/17 08:00 80 10/06/17 08:00 98.4 104 26 100/71 (81) 99 I/O 10/06/17 10/06/17 10/06/17 10/07/17 10/07/17 10/07/17 07:00 15:00 23:00 07:00 15:00 23:00 Intake Total 240 ml 240 ml 240 ml 240 ml Output Total 1125 ml 250 ml Balance -885 ml -10 ml 240 ml 240 ml Intake Oral 240 ml 240 ml 240 ml 240 ml Output Urine Total 1125 ml 250 ml # Voids 1 1 # Bowel Movements 0 0 0 Result Diagram: 10/06/17 0401 10/06/17 0401 Imaging Last 24 hours Impressions Chest X-Ray 10/04/17 1200 Signed Impressions: Service Date/Time: Wednesday, October 04, 2017 11:52 - CONCLUSION: 1. Small right pneumothorax. 2. Slight increase in right lung consolidation since earlier today. Right clavicle fracture and multiple right rib fractures. Teto Butts MD Objective Remarks RLE: dressings clean and dry. intact. NVI RUE: pain with motion. nvi distally Assessment & Plan Assessment and Plan 1) Right Femoral Shaft Fx s/p IMN - POD 4 -WBAT -daily dressing changes -CM for DC planning 2) Right Clavicle Fx - nonop -NWB -sling -no ROM -f/u with [facility] or [facility] in 2 weeks -Rx on chart -DVt prophylaxis with lovenox and DC with Xarelto Salazar Del Rio Jr. Oct 07, 2017 07:00
[2017-10-07 07:32] LABS: AUTOMATED NEUTROPHIL # 5.3 TH/MM3 (1.8-7.7); BASOPHIL % 0.6 % (0.0-2.0); EOSINOPHIL # 0.2 TH/MM3 (0-0.4); EOSINOPHIL % 2.1 % (0.0-4.0); HEMATOCRIT 26.6 % (35.0-46.0); HEMOGLOBIN 9.3 GM/DL (11.6-15.3); LYMPH % 17.4 % (9.0-44.0); LYMPHOCYTE # 1.3 TH/MM3 (1.0-4.8); MEAN CELL VOLUME 90.9 FL (80.0-100.0); MEAN CORPUSCULAR HEMOGLOBIN 31.9 PG (27.0-34.0); MEAN CORPUSCULAR HGB CONC 35.1 % (32.0-36.0); MEAN PLATELET VOLUME 8.3 FL (7.0-11.0); MONO % 7.9 % (0.0-8.0); MONOCYTE # 0.6 TH/MM3 (0-0.9); PLATELET COUNT 165 TH/MM3 (150-450); RED BLOOD COUNT 2.93 MIL/MM3 (4.00-5.30); RED CELL DISTRIBUTION WIDTH 13.4 % (11.6-17.2); WHITE BLOOD COUNT 7.3 TH/MM3 (4.0-11.0)
[2017-10-07 07:41] LABS: ALBUMIN 2.7 GM/DL (3.4-5.0); AST (GOT) 64 U/L (15-37); BICARBONATE 26.3 MEQ/L (21.0-32.0); BLOOD UREA NITROGEN 8 MG/DL (7-18); CALCIUM 8.1 MG/DL (8.5-10.1); CHLORIDE 101 MEQ/L (98-107); CREATININE 0.65 MG/DL (0.50-1.00); GLOMERULAR FILTRATION RATE 104 ML/MIN (>89); GLUCOSE,RANDOM 104 MG/DL (74-106); SODIUM (NA) 135 MEQ/L (136-145)
[2017-10-07 07:43] LABS: ALT (GPT) 98 U/L (10-53)
[2017-10-07 07:45] LABS: ALKALINE PHOSPHATASE 56 U/L (45-117); TOTAL BILIRUBIN ADULT 0.6 MG/DL (0.2-1.0); TOTAL PROTEIN 6.3 GM/DL (6.4-8.2)
[2017-10-07 08:00] VITALS: BP 108/56; PULSE 105; RESP 18; TEMP 98.6; O2SAT 92
[2017-10-07] MEDS: DOCUSATE SODIUM 50 MG/SENNA 8.6 MG TAB PO SCH (08:09)
[2017-10-07] MEDS: LIDOCAINE HCL 5% PATCH T-DERMAL SCH (08:10)
[2017-10-07] MEDS: MAGNESIUM HYDROXIDE SUSP 30 ML CUP PO SCH (08:10)
[2017-10-07] MEDS: ENOXAPARIN SODIUM 30 MG/0.3 ML SYRINGE SQ SCH (08:11)
[2017-10-07] MEDS: CHOLECALCIFEROL (VIT D3) 5000 UNIT CAP PO SCH (08:16)
[2017-10-07] MEDS ORDERED: LACTULOSE SYRUP 20 GM/30 ML CUP PO SCH (09:00)
[2017-10-07 09:17] VITALS: O2SAT 92
[2017-10-07] MEDS ORDERED: MAGN30S PO (11:44)
[2017-10-07] MEDS ORDERED: PERI PO (11:44)
[2017-10-07] MEDS ORDERED: COMMODE 3-IN-11 MIS (11:46)
[2017-10-07] MEDS ORDERED: WALKER WHEELS/F1 MIS (11:46)
--- NOTE | 2017-10-07 11:47 | HHI.FF ---
Face to Face Verification Diagnosis: (1) Pelvis fracture (2) Liver laceration, grade III, without open wound into cavity (3) Intellectual disability (4) Femur fracture, right (5) Right clavicle fracture Physical Therapy Order: Evaluate and Treat, Improve ambulation, Strength and gait training Home Health Nursing Order: Medical education Signs/symptoms of disease process Oxygen administration education Nursing assessment with vital signs I have seen patient Samantha Morse on 10/07/17. My clinical findings support the need for the requested home health care services because: Ltd mobility - disease progression Deconditioned w/ increased weakness Med compliance is questionable Limited ability to care for self High risk of falls I certify that my clinical findings support that this patient is homebound because: Post-op weakness Impaired cognitive ability/safety Unsteady gait/balance Unsafe to leave home unassisted [id number] bed/chair Unable to use public transportation Lurdes Dent Oct 07, 2017 11:47
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
[2017-10-07 12:47] VITALS: BP 118/69; PULSE 114; RESP 17; TEMP 97.5; O2SAT 95
[2017-10-07] MEDS ORDERED: METH500T3 PO (13:41)
[2017-10-07] MEDS ORDERED: LIDO1ADH4 T-DERMAL (13:41)
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
== END 2017-10-07 15:44 | disposition home or self-care (01) | DRG 956 ==
LOC: NEPE 20:02 → NEDA 21:31 → EDBD 21:31 → N03B 10-04 00:15 → N06A 10-06 15:08
PROVIDERS: ADMIT Surgery; ATTEND Surgery
PROC: 0QS836Z Reposition Right Femoral Shaft with Intramedullary Internal Fixation Device, Percutaneous Approach (ICD-10-PCS; principal; 2017-10-04 09:24)
DX: S72.301A Unspecified fracture of shaft of right femur, initial encounter for closed fracture (principal); S27.2XXA Traumatic hemopneumothorax, initial encounter; S32.592A Other specified fracture of left pubis, initial encounter for closed fracture; S36.116A Major laceration of liver, initial encounter; J18.9 Pneumonia, unspecified organism; S32.029A Unspecified fracture of second lumbar vertebra, initial encounter for closed fracture; T79.7XXA Traumatic subcutaneous emphysema, initial encounter; S32.039A Unspecified fracture of third lumbar vertebra, initial encounter for closed fracture; S32.049A Unspecified fracture of fourth lumbar vertebra, initial encounter for closed fracture; D62 Acute posthemorrhagic anemia; S22.41XA Multiple fractures of ribs, right side, initial encounter for closed fracture; S27.321A Contusion of lung, unilateral, initial encounter; S32.059A Unspecified fracture of fifth lumbar vertebra, initial encounter for closed fracture; S42.001A Fracture of unspecified part of right clavicle, initial encounter for closed fracture; V09.20XA Pedestrian injured in traffic accident involving unspecified motor vehicles, initial encounter; Y92.488 Other paved roadways as the place of occurrence of the external cause; Y93.01 Activity, walking, marching and hiking; F17.200 Nicotine dependence, unspecified, uncomplicated; F79 Unspecified intellectual disabilities; S00.81XA Abrasion of other part of head, initial encounter; J45.909 Unspecified asthma, uncomplicated
CPT/HCPCS: 70450; 70486; 71045; 71260; 72125; 72170; 73551; 73552; 74177; 76000; 80048; 80053; 81001; 82435; 82565; 82947; 83735; 84132; 84295; 84520; 84702; 85014; 85018; 85025; 85027; 85610; 85730; 86850; 86900; 86901; 87086; 87641; 90715; 94150; 94640; 94664; J0131; J0171; J0690; J1100; J1580; J1650; J2250; J2270; J2370; J2405; J2710; J3010; J3370; J7050; J7120; Q9967